=== PATIENT | male | born 1955 | race Caucasian/White ===

== ENCOUNTER 2017-01-02 09:56 | Emergency (ER) | payer OTHER ==
[2017-01-02] MEDS ORDERED: Aspirin Low Dose CHEW TAB* 81 MG PO ONE (10:40)
--- NOTE | 2017-01-02 11:30 | RAD ---
HISTORY: Chest pain COMPARISONS: None relevant VIEWS:1: Single frontal portable view of the chest at 10:44 AM FINDINGS: LINES AND TUBES: None. CARDIOMEDIASTINAL SILHOUETTE: The cardiomediastinal silhouette is normal for portable technique. PLEURA: The costophrenic angles are sharp. No pleural abnormalities are noted. LUNG PARENCHYMA: The lungs are clear. ABDOMEN: The upper abdomen is clear. There is no subphrenic gas. BONES AND SOFT TISSUES: No bone or soft tissue abnormalities are noted. IMPRESSION: NO ACTIVE CARDIOPULMONARY DISEASE.
[2017-01-02 11:34] LABS: Hematocrit 46 % (42-52); Hemoglobin 14.9 g/dl (14.0-18.0); Mean Corpuscular HGB Conc 33 g/dl (31-36); Mean Corpuscular Hemoglobin 29 pg (27-31); Mean Corpuscular Volume 90 fL (80-94); Mean Platelet Volume 9 um3 (7.4-10.4); Red Blood Count 5.11 10^6/ul (4.0-5.4); Red Cell Distribution Width 13 % (10.5-15); White Blood Count 4.9 10^3/ul (3.5-10.8)
[2017-01-02 11:54] LABS: Albumin 4.3 g/dL (3.2-5.2); BUN/Creatinine Ratio 9.1 (8-20); Calcium 9.2 mg/dL (8.6-10.3); EGFR African American 86.9 (>60); EGFR Non-African American 67.6 (>60); Globulin 2.9 g/dL (2-4); Magnesium 2.1 mg/dL (1.9-2.7); Total Bilirubin 1.2 mg/dL (0.2-1.0); Total Protein 7.2 g/dL (6.4-8.9)
[2017-01-02 12:28] LABS: T4 7.06 mcg/mL (6.09-12.23)
[2017-01-02 12:29] LABS: TSH (Thyroid Stimulating Horm) 1.66 mcIU/mL (0.34-5.60)
[2017-01-02] MEDS ORDERED: Nitroglycerin TAB 0.4 MG* 0.4 MG TAB SL ONE (14:11)
[2017-01-02] MEDS ORDERED: Ketorolac INJ* 30 MG/ML 1 ML VIAL IV PUSH ONE (14:48)
[2017-01-02 15:09] VITALS: BP 119/67
--- NOTE | 2017-01-02 17:00 | ED ---
Wiley Corcoran Billy, scribed for Joe Hagen MD on 01/02/17 at 1043 . HPI Chest Pain - HPI Summary HPI Summary: Patient is a 61 year-old male coming to [facility] for evaluation of chest heaviness for several days. His symptoms first started 6 days ago, when he woke up in the middle of the night with chest pressure and shortness of breath. His pain was worse with deep breaths. However, it spontaneously resolved after 5-10 minutes, and he went back to sleep. The next morning, he woke up with a heaviness in the chest yet again. 3 days ago, he had an episode of intermittent, sharp sternal chest pain that lasted approximately 10 minutes before spontaneously resolving. Since then, he has had a constant, non-radiating, sternal chest heaviness. Severity 3/10. Pain is not worse with exertion; in fact, the patient states that he is most mindful of his chest heaviness when he is sitting and not doing anything. Denies nausea, vomiting, diaphoresis, near-syncope, abdominal pain, or calf pain/swelling. Patient denies any similar previous symptoms. He also reports that he was an avid runner several years ago, but stopped in recent years due to back problems. He recently started running again a few weeks ago and he felt that he had a significantly increased difficulty catching his breath afterwards. - History of Current Complaint Chief Complaint: EDChestPainROMI Time Seen by Provider: 01/02/17 10:33 Hx Obtained From: Patient Onset/Duration: Started Days Ago Timing: Constant Initial Severity: Moderate Current Severity: Moderate Pain Intensity: 3 Pain Scale Used: 0-10 Numeric Chest Pain Location: Mid Sternal Chest Pain Radiates: No Character: Heaviness Aggravating Factor(s): Nothing Alleviating Factor(s): Nothing Associated Signs and Symptoms: Positive: Chest Pain, Shortness of Breath. Negative: Fever, Chills, Nausea, Palpitations, Cough, Calf Pain/Swelling, Vomiting - Allergy/Home Medications Allergies/Adverse Reactions: Allergies Allergy/AdvReac Type Severity Reaction Status Date / Time No Known Allergies Allergy Verified 04/14/16 08:47 PMH/Surg Hx/FS Hx/Imm Hx Endocrine/Hematology History: Denies: Hx Diabetes Cardiovascular History: Denies: Hx Hypertension, Hx Pacemaker/ICD History: Denies: Hx Renal Disease Sensory History: Denies: Hx Hearing Aid Psychiatric History: Denies: Hx Panic Disorder - Surgical History Surgery Procedure, Year, and Place: HERNIA REPAIRS- Xs 2 Infectious Disease History: No Infectious Disease History: Denies: Traveled Outside the [place] in Last 30 Days - Family History Family History: The patient's father has a history of pancreatic cancer. The patient's maternal grandfather had an RI in his 40s. - Social History Alcohol Use: Occasionally Substance Use Type: Reports: None Smoking Status (MU): Never Smoked Tobacco Review of Systems Negative: Fever, Chills, Skin Diaphoresis Positive: Chest Pain Positive: Shortness Of Breath Negative: Vomiting, Diarrhea, Nausea Negative: Myalgia, Edema All Other Systems Reviewed And Are Negative: Yes Physical Exam - Summary Physical Exam Summary: VITAL SIGNS: Reviewed. GENERAL: Patient is a well developed and nourished male who is lying comfortable in the stretcher. Patient is not in any acute respiratory distress. HEAD AND FACE: No signs of trauma. No ecchymosis, hematomas or skull depressions. No sinus tenderness. EYES: PERRLA, EOMI x 2, No injected conjunctiva, no nystagmus. EARS: Hearing grossly intact. Ear canals and tympanic membranes are within normal limits. MOUTH: Oropharynx within normal limits. NECK: Supple, trachea is midline, no adenopathy, no JVD, no carotid bruit, no c- spine tenderness, neck with full ROM. CHEST: Symmetric, no tenderness at palpation LUNGS: Clear to auscultation bilaterally. No wheezing or crackles. CVS: Regular rate and rhythm, S1 and S2 present, no murmurs or gallops appreciated. ABDOMEN: Soft, non-tender. No signs of distention. No rebound no guarding, and no masses palpated. Bowel sounds are normal. EXTREMITIES: FROM in all major joints, no edema, no cyanosis or clubbing. NEURO: Alert and oriented x 3. No acute neurological deficits. Speech is normal and follows commands. SKIN: Dry and warm Triage Information Reviewed: Yes Vital Signs On Initial Exam: Initial Vitals Temp Pulse Resp BP Pulse Ox 97 F 65 16 154/86 100 01/02/17 10:14 01/02/17 10:14 01/02/17 10:14 01/02/17 10:14 01/02/17 10:14 Vital Signs Reviewed: Yes - Lynne Coma Scale Coma Scale Total: 15 Diagnostics - Vital Signs Vital Signs Temp Pulse Resp BP Pulse Ox 01/02/17 10:25 58 17 97 01/02/17 10:14 97 F 65 16 154/86 100 - Laboratory Result Diagrams: 01/02/17 11:29 01/02/17 11:29 Lab Statement: Any lab studies that have been ordered have been reviewed, and results considered in the medical decision making process. - Radiology CXR Xray Interpretation: No Acute Changes Radiology Interpretation Completed By: Radiologist - EKG 1008 EKG Interpretation: sinus bradycardia 58 bpm, no STEMI Re-Evaluation - Re-Evaluation First Eval Re-Evaluation Time: 14:09 Change: Unchanged Comment: Chest pain persists. Second Eval Re-Evaluation Time: 14:50 Comment: D-dimer result discussed with the patient. Chest Pain Course/Dx - Course Assessment/Plan: Patient is a 61 year-old male coming to [facility] for evaluation of chest heaviness for several days. His symptoms first started 6 days ago, when he woke up in the middle of the night with chest pressure and shortness of breath. His pain was worse with deep breaths. However, it spontaneously resolved after 5-10 minutes, and he went back to sleep. The next morning, he woke up with a heaviness in the chest yet again. 3 days ago, he had an episode of intermittent, sharp sternal chest pain that lasted approximately 10 minutes before spontaneously resolving. Since then, he has had a constant, non-radiating , sternal chest heaviness. Severity 3/10. Pain is not worse with exertion; in fact, the patient states that he is most mindful of his chest heaviness when he is sitting and not doing anything. Denies nausea, vomiting, diaphoresis, near- syncope, abdominal pain, or calf pain/swelling. Patient denies any similar previous symptoms. He also reports that he was an avid runner several years ago , but stopped in recent years due to back problems. He recently started running again a few weeks ago and he felt that he had a significantly increased difficulty catching his breath afterwards. Test results WNL. D-Dimer 206. Troponin #1 is 0.00, troponin #2 is 0.01. EKG shows no ST elevations. In the ED course, the patient was given NTG without improvement or change. At this point, I do not believe that the patient has ACS and I have low suspicion for PE since the D-Dimer is negative. The patient was given one dose of Toradol and the symptoms improved. Therefore I discussed my findings and test results with the patient and the need to follow up with PCP. He was given instructions to return to the ED if he develops any chest pain, shortness of breath, nausea, or diaphoresis. He understands and agrees. The patient is hemodynamically stable, A &Ox3. - Chest Pain Differential Diagnosis/HQI/PQRI: Acute RI, ACS, Angina, CHF, Chest Wall, GI Disease, Lower Respiratory Infection - Diagnoses Provider Diagnoses: Atypical chest pain Discharge - Discharge Plan Condition: Stable Disposition: HOME Patient Education Materials: Chest Pain (ED) Referrals: Apolinar Agrawal MD [Primary Care Provider] - The documentation as recorded by the Wiley browning Billy accurately reflects the service I personally performed and the decisions made by me, Joe Hagen MD.
== END 2017-01-02 15:12 | disposition home or self-care (01) ==
LOC: ED 09:56
DX: R07.89 Other chest pain (principal); R06.02 Shortness of breath
CPT/HCPCS: 36415; 71010; 80053; 82553; 83605; 83735; 83874; 83880; 84436; 84443; 84484; 85025; 85379; 93005; 96374; 99283; A9270-GY; J1885